=== PATIENT | female | born 1950 | race African-American/Black ===

== ENCOUNTER 2019-12-31 16:35 | Emergency (ER) | payer MEDICARE ==
[2019-12-31 17:06] LABS: #Lymphocytes 0.6 thou/uL (1.20-3.40); #Monocytes 0.6 thou/uL (0.11-0.59); #Neutrophils 8.3 thou/uL (1.40-6.50); %Basophils 0.3 % (0.0-1.0); %Eosinophils 0.2 % (0.0-10.0); %Lymphocytes 6.2 % (21.0-51.0); %Neutrophils 87.2 % (42.0-75.0); Hemoglobin 9.2 g/dL (12.0-16.0); Mean Corpuscular HGB CONC 31.6 g/dL (32.0-36.0); Mean Corpuscular Hemoglobin 31.1 pg (27.0-31.0); Mean Corpuscular Volume 98.2 fL (78.0-98.0); Mean Platelet Volume 7.4 fL (7.4-10.4); Platelet Count 182 thou/uL (130-400); RBC Distribution Width 15.2 % (11.5-14.5); Red Blood Cell (RBC) Count 2.95 mill/uL (4.20-5.40); White Blood Cell (WBC) Count 9.5 thou/uL (4.8-10.8)
[2019-12-31 17:24] LABS: ALT (SGPT) 13 U/L (8-55); AST (SGOT) 20 U/L (5-34); Albumin 2.7 g/dL (3.4-4.8); Alkaline Phosphatase 57 U/L (40-110); Anion Gap 20 mmol/L (10-20); BUN (Urea Nitrogen) 23 mg/dL (9.8-20.1); Bilirubin, Total 0.8 mg/dL (0.2-1.2); Calc. Creatinine Clearance 0 mL/min (70-130); Calcium 7.9 mg/dL (7.8-10.44); Carbon Dioxide 24 mmol/L (23-31); Chloride 100 mmol/L (98-107); Estimated GFR-MDRD 41; Globulin 3.1 g/dL (2.4-3.5); Glucose 87 mg/dL (80-115); Protein, Total 5.8 g/dL (6.0-8.3); Sodium 142 mmol/L (136-145)
--- NOTE | 2019-12-31 17:29 | RAD ---
SINGLE VIEW OF THE CHEST: 12/31/19 COMPARISON: None. HISTORY: Chest pain. FINDINGS: Single view of the chest shows a normal sized cardiomediastinal silhouette. There is no evidence of c onsolidation, mass, or pleural effusion. The bones are unremarkable. IMPRESSION: No evidence of acute cardiopulmonary disease. POS: [facility]
[2019-12-31 17:31] LABS: Potassium 2.2 mmol/L (3.5-5.1)
[2019-12-31] MEDS ORDERED: NS 0.9% w/ 20 MEQ KCL 1,000 ML ONE (17:46)
[2019-12-31] MEDS ORDERED: Magnesium 2 GM/50 ML BAG (IN WATER) ONE (17:46)
== END 2019-12-31 18:42 | disposition short-term general hospital (02) ==
LOC: MADERS 16:35
DX: E87.6 Hypokalemia (principal); D64.9 Anemia, unspecified; E87.8 Other disorders of electrolyte and fluid balance, not elsewhere classified; N28.9 Disorder of kidney and ureter, unspecified; E11.9 Type 2 diabetes mellitus without complications; E78.5 Hyperlipidemia, unspecified; I10 Essential (primary) hypertension; M10.9 Gout, unspecified; M06.9 Rheumatoid arthritis, unspecified; F17.210 Nicotine dependence, cigarettes, uncomplicated
CPT/HCPCS: 36415; 71045; 80053; 83735; 84484; 85025; 93005; 96361; 96365; 96368; J3475; J3480

== ENCOUNTER 2020-01-07 10:47 | Outpatient (CLI) | payer MEDICARE, OTHER ==
--- NOTE | 2020-01-07 14:11 | RAD ---
RIGHT HAND 3 VIEWS: HISTORY: Idiopathic gout. COMPARISON: Hand radiograph 01/02/2020. FINDINGS: Large central erosions of the distal interphalangeal joints of the index, middle, and ring finger. 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 The remainder o f the hand appears to be intact. Large erosion of the ulnar styloid and distal ulna with overhanging edges. IMPRESSION: Advanced arthritis involving the index, middle, and ring finger distal interphalangeal joints as well as the distal ulna medial margin. POS: [facility]
--- NOTE | 2020-01-07 14:22 | RAD ---
THREE VIEWS OF THE LEFT FOOT: INDICATION: History of gout. COMPARISON: None. FINDINGS: There is periarticular erosive change involving the great toe and small digit metatarsophalangeal helder nts as well as the small digit IP joint. There are numerous erosions involving the base of the 2nd t hrough 5th digit MTP joint. Lisfranc alignment is preserved. There is osteoarthritic change of the mid foot. There is diffuse osteopenia. There is metatarsal prima varix hallux valgus deformity of t he 1st ray. No acute fracture is evident. Enthesopathic change is seen off the calcaneus. 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 Inflammatory arthropathy such as rheumatoid cannot be entirely excluded. POS: [facility]
== END 2020-01-07 10:48 | disposition home or self-care (01) ==
LOC: MADRAD 10:47
PROVIDERS: ATTEND Physician Assistant
DX: M10.09 Idiopathic gout, multiple sites (principal); M19.041 Primary osteoarthritis, right hand

== ENCOUNTER 2020-02-10 14:12 | Outpatient (CLI) | payer MEDICARE, OTHER ==
--- NOTE | 2020-02-10 14:56 | CT ---
CT BRAIN WITHOUT CONTRAST: 02/10/20 HISTORY: Fall. Difficulty ambulating. 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 The ventricular si ze is appropriate and the basilar cisterns patent. No evidence of acute infarct, hemorrhage, midline shift, or abnormal extra-axial fluid collections are seen. The bony calvarium is intact. There is mil d mucosal disease in the ethmoid sinuses. The mastoid air cells are clear. IMPRESSION: No CT evidence of acute intracranial process. POS: [facility]
== END 2020-02-10 14:13 | disposition home or self-care (01) ==
LOC: MADCT 14:12
PROVIDERS: ATTEND Physician Assistant
DX: Z74.09 Other reduced mobility (principal)
CPT/HCPCS: 70450

== ENCOUNTER 2023-10-14 14:49 | Emergency (ER) | payer MEDICARE, BC ==
[2023-10-14] MEDS ORDERED: Sodium Chloride 0.9% 100 ML ONE (16:05)
[2023-10-14] MEDS ORDERED: Cefepime 2 GM VIAL ONE (16:05)
[2023-10-14] MEDS ORDERED: Lactated Ringer's 1,000 ML ONE (16:05)
[2023-10-14 16:17] LABS: INR-International Normal Ratio 1.1; PTT 28.1 sec (22.9-36.1); Prothrombin Time 14.7 sec (12.0-14.7)
[2023-10-14 16:20] LABS: D-Dimer Test 3.04 mcg/mL (0.27-0.43)
[2023-10-14 16:34] LABS: ALT (SGPT) 9 U/L (8-55); AST (SGOT) 16 U/L (5-34); Albumin 3.9 g/dL (3.4-4.8); Alkaline Phosphatase 117 U/L (40-110); Anion Gap 16 mmol/L (10-20); BUN (Urea Nitrogen) 25 mg/dL (9.8-20.1); Bilirubin, Total 0.4 mg/dL (0.2-1.2); Calc. Creatinine Clearance 0 mL/min (70-130); Calcium 9.3 mg/dL (7.8-10.44); Carbon Dioxide 18 mmol/L (23-31); Chloride 113 mmol/L (98-107); Estimated GFR 40; Globulin 3.7 g/dL (2.4-3.5); Glucose 89 mg/dL (83-110); Potassium 5.6 mmol/L (3.5-5.1); Protein, Total 7.6 g/dL (5.8-8.1); Sodium 141 mmol/L (136-145)
[2023-10-14 17:36] LABS: #Basophils 0.1 thou/uL (0.0-0.2); #Eosinphils 0.1 thou/uL (0.0-0.7); #Lymphocytes 1.3 thou/uL (1.20-3.40); #Monocytes 0.4 thou/uL (0.11-0.59); #Neutrophils 6.8 thou/uL (1.40-6.50); %Basophils 0.7 % (0.0-1.0); %Eosinophils 0.6 % (0.0-10.0); %Lymphocytes 15.3 % (21.0-51.0); %Monocytes 4.2 % (0.0-10.0); %Neutrophils 79.2 % (42.0-75.0); Hematocrit 30.2 % (36.0-47.0); Hemoglobin 9.2 g/dL (12.0-16.0); Mean Corpuscular HGB CONC 30.4 g/dL (32.0-36.0); Mean Corpuscular Hemoglobin 30.6 pg (27.0-31.0); Mean Corpuscular Volume 100.9 fl (78.0-98.0); Mean Platelet Volume 8.1 fL (7.4-10.4); Platelet Count 226 10x3/uL (130-400); Red Blood Cell (RBC) Count 2.99 mill/uL (4.20-5.40); White Blood Cell (WBC) Count 8.6 10x3/uL (4.8-10.8)
[2023-10-14] MEDS ORDERED: Vancomycin 1 GM VIAL ONE (17:37)
[2023-10-14] MEDS ORDERED: Boostrix 0.5 ML (Tdap) VIAL (>/=7 yrs of age) ONE (17:37)
[2023-10-14] MEDS ORDERED: Sodium Chloride 0.9% 250 ML 250 ML ONE (17:37)
[2023-10-14] MEDS ORDERED: Bacitracin 1 PK ONE (17:54)
[2023-10-14] MEDS ORDERED: Morphine 4 MG/ML VIAL ONE (20:26)
== END 2023-10-14 23:18 | disposition short-term general hospital (02) ==
LOC: MADERS 14:49
DX: S92.415A Nondisplaced fracture of proximal phalanx of left great toe, initial encounter for closed fracture (principal); A41.9 Sepsis, unspecified organism; R65.20 Severe sepsis without septic shock; N17.9 Acute kidney failure, unspecified; E87.5 Hyperkalemia; E87.20 Acidosis, unspecified; I10 Essential (primary) hypertension; E11.9 Type 2 diabetes mellitus without complications; M06.9 Rheumatoid arthritis, unspecified; M10.9 Gout, unspecified; E78.00 Pure hypercholesterolemia, unspecified; X58.XXXA Exposure to other specified factors, initial encounter; Z79.82 Long term (current) use of aspirin; Z79.899 Other long term (current) drug therapy
CPT/HCPCS: 36415; 80053; 83605; 83880; 85025; 85379; 85610; 85730; 86140; 87040; 87070; 87205; 90471; 90715; 93005; 94760; 96361; 96365; 96367; 96375; J0692; J2270; J3370; J3490; J7050; J7120

== ENCOUNTER 2024-05-05 10:58 | Emergency (ER) | payer BC, MEDICARE ==
[2024-05-05 12:30] LABS: ALT (SGPT) Less than 7 U/L (8-55); AST (SGOT) 10 U/L (5-34); Albumin 3.4 g/dL (3.4-4.8); Alkaline Phosphatase 114 U/L (40-110); Anion Gap 14 mmol/L (10-20); BUN (Urea Nitrogen) 36 mg/dL (9.8-20.1); Bilirubin, Total 0.4 mg/dL (0.2-1.2); Calc. Creatinine Clearance 0 mL/min (70-130); Calcium 9.1 mg/dL (7.8-10.44); Carbon Dioxide 20 mmol/L (23-31); Chloride 112 mmol/L (98-107); Estimated GFR 24; Globulin 3.2 g/dL (2.4-3.5); Glucose 90 mg/dL (83-110); Magnesium 1.3 mg/dL (1.6-2.6); Potassium 5.5 mmol/L (3.5-5.1); Protein, Total 6.6 g/dL (5.8-8.1); Sodium 140 mmol/L (136-145)
[2024-05-05 12:36] LABS: Anisocytosis SLIGHT = 6-15 cells (100X) (0-5/hpf); Band 2 % (5-11); Eosinophils 5 % (0-10); Hematocrit 27.8 % (36.0-47.0); Hypochromia SLIGHT = 6-15 cells (100X) (0-5/hpf); Lymphocytes 22 % (21-51); MDiff Complete? YES; Macrocytosis SLIGHT = 6-15 cells (100X) (0-5/hpf); Mean Corpuscular HGB CONC 28.7 g/dL (32.0-36.0); Mean Corpuscular Hemoglobin 32.3 pg (27.0-31.0); Mean Corpuscular Volume 112.8 fl (78.0-98.0); Mean Platelet Volume 6.2 fL (7.4-10.4); Monocytes 6 % (0-10); Neutrophil 64 % (42-75); Platelet Adequacy Comment Appears Adequate; Platelet Count 207 10x3/uL (130-400); RBC Distribution Width 19.5 % (11.5-14.5); Red Blood Cell (RBC) Count 2.47 mill/uL (4.20-5.40); Target Cells MODERATE= 6-15 cells (100X) (0-1/hpf); White Blood Cell (WBC) Count 5.6 10x3/uL (4.8-10.8)
[2024-05-05] MEDS ORDERED: Furosemide 20 MG (2 mL) VIAL ONE (13:05)
[2024-05-05] MEDS ORDERED: Sodium Chloride 0.9% 500 ML ONE (13:05)
[2024-05-05] MEDS ORDERED: Magnesium 2 GM/50 ML BAG (IN WATER) ONE (13:05)
== END 2024-05-05 14:50 | disposition home or self-care (01) ==
LOC: MADERS 10:58
DX: E11.22 Type 2 diabetes mellitus with diabetic chronic kidney disease (principal); N18.9 Chronic kidney disease, unspecified; I12.9 Hypertensive chronic kidney disease with stage 1 through stage 4 chronic kidney disease, or unspecified chronic kidney disease; E87.5 Hyperkalemia; E83.42 Hypomagnesemia; D53.9 Nutritional anemia, unspecified; T80.818A Extravasation of other vesicant agent, initial encounter; E78.5 Hyperlipidemia, unspecified; F17.210 Nicotine dependence, cigarettes, uncomplicated; Z79.899 Other long term (current) drug therapy; Z79.82 Long term (current) use of aspirin
CPT/HCPCS: 36415; 80053; 83735; 85025; 86850; 86900; 86901; 93005; 94760; 96365; 96375; J1940; J3475; J7030

== ENCOUNTER 2024-06-24 15:25 | Emergency (ER) | payer MEDICARE ==
[2024-06-24 17:21] LABS: ALT (SGPT) 9 U/L (8-55); AST (SGOT) 18 U/L (5-34); Albumin 2.4 g/dL (3.4-4.8); Alkaline Phosphatase 75 U/L (40-110); Anion Gap 15 mmol/L (10-20); BUN (Urea Nitrogen) 39 mg/dL (9.8-20.1); Bilirubin, Total 0.3 mg/dL (0.2-1.2); Calc. Creatinine Clearance 0 mL/min (70-130); Calcium 8.3 mg/dL (7.8-10.44); Carbon Dioxide 19 mmol/L (23-31); Chloride 108 mmol/L (98-107); Estimated GFR 22; Globulin 3.9 g/dL (2.4-3.5); Glucose 83 mg/dL (83-110); Potassium 5.2 mmol/L (3.5-5.1); Protein, Total 6.3 g/dL (5.8-8.1); Sodium 137 mmol/L (136-145)
[2024-06-24 17:24] LABS: Anisocytosis SLIGHT = 6-15 cells (100X) (0-5/hpf); Eosinophils 3 % (0-10); Hematocrit 23.2 % (36.0-47.0); Hypochromia SLIGHT = 6-15 cells (100X) (0-5/hpf); Lymphocytes 28 % (21-51); MDiff Complete? YES; Macrocytosis SLIGHT = 6-15 cells (100X) (0-5/hpf); Mean Corpuscular HGB CONC 30.1 g/dL (32.0-36.0); Mean Corpuscular Volume 112.6 fl (78.0-98.0); Mean Platelet Volume 7.2 fL (7.4-10.4); Monocytes 10 % (0-10); Neutrophil 57 % (42-75); Platelet Count 215 10x3/uL (130-400); Polychromasia SLIGHT = 2-3 cells (100X) (0-2/hpf); RBC Distribution Width 18.4 % (11.5-14.5); Red Blood Cell (RBC) Count 2.06 mill/uL (4.20-5.40); White Blood Cell (WBC) Count 4.5 10x3/uL (4.8-10.8)
[2024-06-24 17:25] LABS: Manual Diff?? YES; Reactive Lymphocytes 2 % (0-10)
[2024-06-24 17:26] LABS: Platelet Adequacy Comment Appears Adequate
[2024-06-24 17:46] LABS: Bilirubin Negative (Negative); Blood, Urine Trace (Negative); Glucose, Urine (Dipstick) Negative (Negative); Ketone, Urine Negative (Negative); Leukocyte Large (Negative); Nitrite Negative (Negative); Protein, Urine (Dipstick) Negative (Neg-Trace); Urobilinogen 0.2 mg/dL (Less than 2); pH, Urine 6.5 (5.0-9.0)
[2024-06-24 17:47] LABS: Clarity Very Cloudy (Clear)
[2024-06-24 17:51] LABS: Bacteria/HPF 3+ HPF (None Seen); CAUTI Indications for Culture Pelvic or flank pain; RBC/HPF 0-3 HPF (0-3); WBC/HPF Greater Than 50 HPF (0-3)
[2024-06-24 17:53] LABS: Urine Culture Reflex Yes Yes
[2024-06-24] MEDS ORDERED: cefTRIAXone (ROCEPHIN) 1 GM VIAL ONE (18:25)
[2024-06-24] MEDS ORDERED: Furosemide 20 MG (2 mL) VIAL ONE (18:41)
== END 2024-06-24 21:09 | disposition home or self-care (01) ==
LOC: MADERS 15:25
DX: N39.0 Urinary tract infection, site not specified (principal); I13.0 Hypertensive heart and chronic kidney disease with heart failure and stage 1 through stage 4 chronic kidney disease, or unspecified chronic kidney disease; E11.22 Type 2 diabetes mellitus with diabetic chronic kidney disease; N18.30 Chronic kidney disease, stage 3 unspecified; I50.32 Chronic diastolic (congestive) heart failure; D64.9 Anemia, unspecified; M79.89 Other specified soft tissue disorders; E11.40 Type 2 diabetes mellitus with diabetic neuropathy, unspecified; F17.210 Nicotine dependence, cigarettes, uncomplicated; E78.00 Pure hypercholesterolemia, unspecified; M10.9 Gout, unspecified; M06.9 Rheumatoid arthritis, unspecified; Z79.82 Long term (current) use of aspirin; Z79.899 Other long term (current) drug therapy
CPT/HCPCS: 71045; 80053; 81001; 83880; 85025; 87077; 87086; J0696; J1940; 36415; 87186; 96374; 96375